=== PATIENT | male | born 1985 | race Caucasian/White ===

== ENCOUNTER → 2020-07-19 | Day surgery (SDC) | payer OTHER ==
[~2020-07-19] MED LIST: BACTRIM DS TAB1 EAC1 PO; COLESTID 1GM TAB1 GM PO; FLUOXETINE HCL40 MG PO; LISINOPRIL-HCT1 EAC1 PO; LOPRESSOR50 MG PO; OMEPRAZOLE40 MG PO; PROTONIX 40MG T40 MG PO; TRAZODONE 50MG50 MG PO; WELLBUTRIN XL150 MG PO
[2020-07-19 08:10] LABS: HCT 42.8 % (42.0-52.0); HGB 14.2 g/dl (13.2-18.0); MCH 28.1 pg (25.0-31.0); MCHC 33.2 g/dL (32.0-36.0); MCV 84.8 fL (78.0-100.0); MPV 9.6 fL (6.0-9.5); RBC 5.05 M/uL (4.70-6.00); RDW 12.6 % (11.5-14.0); WBC 6.3 K/uL (4.0-10.5)
[2020-07-19 08:31] LABS: ALBUMIN 3.9 g/dL (3.4-5.0); BILIRUBIN - TOTAL 0.8 mg/dL (0.2-1.0); BUN/CREAT RATIO (CALC) 9.4 RATIO; CREATININE 1.17 mg/dL (0.67-1.17); GLOBULIN (CALCULATION) 3.5 g/dL; POTASSIUM 3.9 mmol/L (3.5-5.1); TOTAL PROTEIN 7.4 g/dL (6.4-8.2)
== END | disposition home or self-care (01) ==
LOC: FAS 06:40
PROVIDERS: Surgery
DX: D12.0 Benign neoplasm of cecum (principal); K29.50 Unspecified chronic gastritis without bleeding; K21.00 Gastro-esophageal reflux disease with esophagitis, without bleeding; K58.1 Irritable bowel syndrome with constipation; F41.9 Anxiety disorder, unspecified; F32.9 Major depressive disorder, single episode, unspecified; I10 Essential (primary) hypertension; G47.33 Obstructive sleep apnea (adult) (pediatric); E78.5 Hyperlipidemia, unspecified; Z79.899 Other long term (current) drug therapy
CPT/HCPCS: 36415; 80053; J2250; J2704; J7120